=== PATIENT | male | born 1955 | race Caucasian/White ===

== ENCOUNTER 2025-04-07 11:07 | Emergency (ER) | payer MEDICARE, OTHER, SELFPAY ==
[2025-04-07 11:12] VITALS: BP 114/68
--- NOTE | 2025-04-07 11:27 | ED.GENMED ---
History of Present Illness
<Gloria Warren MD, Resident - Last Filed: 04/07/25 13:37>
General
Chief Complaint: Breathing Problem
Source: patient
Exam Limitations: none
Time Seen by Provider: 04/07/25 11:10
Nursing documentation reviewed up to this point in time: agreed with
History of Present Illness
History of Present Illness:
69yo M with a hx of COPD, tobacco use, HTN, renal insufficiency, & kidney transplant (multiple yrs prior) who presents with worsening dyspnea and hypoxia on home pulse ox.
Pt with chronic cough and dyspnea in s/o COPD, which worsened acutely in the last 1-2 days. Pt states that he is becoming breathless walking a few steps in his home. He used a home pulse ox which showed O2 sat<80%. He denies any new worsening of
cough. Endorses sick contacts in the house. Endorses continued smoking as of yesterday. Denies any f/c at home. Endorses orthopnea at baseline with slight worsening. Denies ROHIT. Was prescribed albuterol-fometerol nebulizer in August, which he has
been using daily, along with trelegy inhaler daily. He also used his albuterol rescue inhaler today. He is currently completing an azithromycin and medrol dose pack.
Past History
<Gloria Warren MD, Resident - Last Filed: 04/07/25 13:37>
Past History
ED Past Medical History: HTN and IDDM
ED Past Surgical History: Other (kidney transplant. hernia.trach)
Social History
Tobacco: Smoker
Employment: Not employed
Family History
Family History: CAD
Review of Systems
<Gloria Warren MD, Resident - Last Filed: 04/07/25 13:37>
Review of Systems
Allergies reviewed?: Yes
All Other Systems: ROS reviewed and negative except as documented in HPI and ROS
Constitutional: Reports no symptoms
EENT: Reports no symptoms
Respiratory: Reports cough and trouble breathing
Cardiac: Reports no symptoms
ABD/GI: Reports no symptoms
: Reports no symptoms
Musculoskeletal: Reports no symptoms
Skin: Reports no symptoms
Neurological: Reports no symptoms
Psychiatric: Reports no symptoms
Phy Exam
<Gloria Warren MD, Resident - Last Filed: 04/07/25 13:37>
General Physical Exam
General Presentation: mild distress
General age: appears older than age
General Skin: warm and dry
General Habitus: other (chronically ill appearing )
General Mental: alert
Cardiovascular Exam
Cardiovascular Exam: regular rate/rhythm and no edema
Heart Sounds: normal
Pulmonary Exam
Pulmonary Exam: generalized wheezing and other (no retractions or accessory muscle use )
Gastrointestinal Exam
Gastrointestinal Exam: non tender and non distended
Neurological Exam
Neurological Exam: alert and slurred speech
Musculoskeletal Exam
Musculoskeletal Exam: no edema
Psychiatric Exam
Psychiatric Exam: normal mood/affect
Scores
<Gloria Warren MD, Resident - Last Filed: 04/07/25 13:37>
Heart Failure Risk
Heart Failure Risk Score: Not Applicable
Sepsis
<Gloria Warren MD, Resident - Last Filed: 04/07/25 13:37>
Sepsis Screening
Sepsis Assessment: Sepsis Ruled Out
Sepsis Screen
Sepsis Screen: Sepsis Ruled Out
Date: 04/07/25
Time: 13:37
<Tone Alba, DO - Last Filed: 04/07/25 14:36>
Sepsis Screen
Sepsis Screen: Sepsis Ruled Out
Date: 04/07/25
Time: 14:36
Course
<Gloria Warren MD, Resident - Last Filed: 04/07/25 13:37>
Orders/Labs/Results
Orders:
Orders
04/07/25 11:10
Electrocardiogram (*1) Urgent
Reason for Study: Other
Other Reason for Exam: Respiratory Distress
Cardiac Monitoring- Treatment ONCE
EKG- Treatment ONCE
IV Insert/Care/Rem.- Treatment PRN
CR Chest - 2 Views Urgent
Comment:
Reason For Exam: respiratory distress
O2 Therapy [RESP] Urgent
Titrate/Wean O2 to maintain O2 sat greater than (%): 93
Special Instructions: TO MAINTAIN CONTINUOUS O2 SATS >/= 93%
Pulse Ox/cont/shift [RESP] Urgent
Quantity: 1
Special Instructions: continuous pulse ox
04/07/25 11:15
COVID-19 Antigen Urgent
Source: Nasal Swab
Complete Blood Count/With Diff Urgent
Comprehensive Metabolic Panel Urgent
NT-proBNP Urgent
Influenza A+B Rapid Molecular Urgent
SHANNAN Source: Nasal Swab
Specimen Description:
04/07/25 11:37
Dexamethasone Sod Phosphate [Decadron] 10 mg IV NOW STA
Ipratropium/Albuterol Sulfate [Duoneb] 3 ml INH R Q4HPRN PRN
Abnormal Lab Results
04/07/25
11:15
MCH 26.1 L pg
(27.0-31.0)
MCHC 32.2 L g/dL
(33.0-37.0)
RDW 15.1 H %
(11.5-14.5)
Absolute Neuts (auto) 7.7 H 10^3/uL
(1.4-6.5)
Absolute Lymphs (auto) 0.5 L 10^3/uL
(1.2-3.4)
Neutrophils % 89.8 H %
(42.2-75.2)
Lymphocytes % 6.3 L %
(20.5-51.1)
Potassium 5.3 H mmol/L
(3.5-5.1)
BUN 36 H mg/dl
(9-20)
Glucose 273 H mg/dl
(70-99)
Calcium 10.3 H mg/dl
(8.4-10.2)
04/07/25 11:15
04/07/25 11:15
Vital Signs
Initial and Last Documented VS:
Initial Vital Signs
Temp Pulse Resp BP Pulse Ox
98.7 F 105 17 114/68 94
04/07/25 11:12 04/07/25 11:12 04/07/25 11:12 04/07/25 11:12 04/07/25 11:12
Last Documented Vital Signs
Temp Pulse Resp BP Pulse Ox
98.7 F 89 19 117/69 97
04/07/25 11:12 04/07/25 13:30 04/07/25 13:30 04/07/25 13:00 04/07/25 13:30
<Tone H. Anjali, DO - Last Filed: 04/07/25 14:36>
Orders/Labs/Results
Orders:
Orders
04/07/25 11:10
Electrocardiogram (*1) Urgent
Reason for Study: Other
Other Reason for Exam: Respiratory Distress
Cardiac Monitoring- Treatment ONCE
EKG- Treatment ONCE
IV Insert/Care/Rem.- Treatment PRN
CR Chest - 2 Views Urgent
Comment:
Reason For Exam: respiratory distress
O2 Therapy [RESP] Urgent
Titrate/Wean O2 to maintain O2 sat greater than (%): 93
Special Instructions: TO MAINTAIN CONTINUOUS O2 SATS >/= 93%
Pulse Ox/cont/shift [RESP] Urgent
Quantity: 1
Special Instructions: continuous pulse ox
04/07/25 11:15
COVID-19 Antigen Urgent
Source: Nasal Swab
Complete Blood Count/With Diff Urgent
Comprehensive Metabolic Panel Urgent
NT-proBNP Urgent
Influenza A+B Rapid Molecular Urgent
SHANNAN Source: Nasal Swab
Specimen Description:
04/07/25 11:37
Dexamethasone Sod Phosphate [Decadron] 10 mg IV NOW STA
Ipratropium/Albuterol Sulfate [Duoneb] 3 ml INH R Q4HPRN PRN
Abnormal Lab Results
04/07/25
11:15
MCH 26.1 L pg
(27.0-31.0)
MCHC 32.2 L g/dL
(33.0-37.0)
RDW 15.1 H %
(11.5-14.5)
Absolute Neuts (auto) 7.7 H 10^3/uL
(1.4-6.5)
Absolute Lymphs (auto) 0.5 L 10^3/uL
(1.2-3.4)
Neutrophils % 89.8 H %
(42.2-75.2)
Lymphocytes % 6.3 L %
(20.5-51.1)
Potassium 5.3 H mmol/L
(3.5-5.1)
BUN 36 H mg/dl
(9-20)
Glucose 273 H mg/dl
(70-99)
Calcium 10.3 H mg/dl
(8.4-10.2)
04/07/25 11:15
04/07/25 11:15
Vital Signs
Initial and Last Documented VS:
Initial Vital Signs
Temp Pulse Resp BP Pulse Ox
98.7 F 105 17 114/68 94
04/07/25 11:12 04/07/25 11:12 04/07/25 11:12 04/07/25 11:12 04/07/25 11:12
Last Documented Vital Signs
Temp Pulse Resp BP Pulse Ox
98.7 F 89 19 117/69 97
04/07/25 11:12 04/07/25 13:30 04/07/25 13:30 04/07/25 13:00 04/07/25 13:30
<Gloria Warren MD, Resident - Last Filed: 04/07/25 13:37>
MDM/Problems Addressed
Differential Diagnosis Includes:
Presentation c/w acute on chronic hypoxic respiratory failure in the s/o COPD exacerbation, likely triggered by URI exposure vs. ongoing smoking
MDM/Problems Addressed:
- CXR
- CBC, CMP
- Monitor O2 sat
- Check COVID & flu
- 10mg IV dexamethasone
- Start duonebs
- EKG
<Gloria Warren MD, Resident - Last Filed: 04/07/25 13:37>
*Pulse Oximetry
Patient hypoxic: no
*Critical Care Note
Total Time (30-74mins, 75-104mins- exclusive of procedures): Not Applicable
<Gloria Warren MD, Resident - Last Filed: 04/07/25 13:37>
Update Note
Update Note:
11:30am
Satting 93% on RA
12:15pm
COVID & flu negative
1:15pm
Ambulation test with desat to 93% from ~95% O2 sat
Patient endorses feeling clearer breathing and improved since presentation
Auscultation of lungs with minimal wheezing, improved from presentation
ED Attending Note
<Gloria Warren MD, Resident - Last Filed: 04/07/25 13:37>
-
Portions of this chart may have been created with voice recognition software.� Occasional wrong word or��sound alike� substitutions may have occurred due to the inherent limitations of voice recognition software.
<Tone Alba, DO - Last Filed: 04/07/25 14:36>
ED Attending Note
Patient seen and examined by attending physician: Yes
I performed a history and physical exam of patient and discussed management with resident, I reviewed resident's note and agree with documented findings and plan of care.: Yes
ED Attending Note:
I agree with Gloria's note.
Patient presents with shortness of breath. Patient has history of COPD. Shortness of breath and cough have been worse over the past couple days. He does have some sick contacts. No fever. Dyspnea is worse with exertion.
General: Awake, Alert, Oriented X3. No acute distress. Appears stated age. No respiratory distress
Vitals: unremarkable
Head: Atraumatic
Eyes: Pupils equal, EOMI
Throat: Airway intact, no exudates
Neck: Trachea midline
Lungs: Straight wheezing bilateral
Heart: Regular rate, no murmurs
Abd: Soft, Nontender, No pulsatile mass
Neuro: Nonfocal
Skin: Warm, dry, no rash
Extremities: pulses equal b/l, no edema
Patient presents with increased shortness of breath. Will obtain chest x-ray, labs. Will provide DuoNebs and bolus of steroids for bronchospasm.
Patient had significant improvement with DuoNebs. Will give him a taper of prednisone. Follow-up with his primary care provider.
Discharge Plan
Departure
Patient Disposition: Home (Routine Discharge)
Date of Disposition: 04/07/25
Time of Disposition: 13:33
Patient with high blood pressure during this ER visit?: No
Condition: Fair
Covid-19: Negative COVID-19
Discharge Problem:
Acute exacerbation of chronic obstructive pulmonary disease (COPD)
Prescriptions:
New
prednisone 20 mg tablet
40 mg PO DAILY 5 Days Qty: 10 0RF
No Action
azithromycin 250 mg Tablet
0 mg PO .COMPLEX
Patient Comments:
02/25/22: Per pt, started Z-jameel and medrol dose pack on 02/22/22
Rx Instructions:
For 250 mg dose pack: take 500 mg today (day 1), then 250 mg for 4 days (days 2-5)
pravastatin 40 mg Tablet
40 mg PO HS
mycophenolate mofetil [CellCept] 250 mg Capsule
750 mg PO DAILY
mycophenolate mofetil [CellCept] 250 mg Capsule
750 mg PO DAILY@12
prednisone 1 mg Tablet
5 mg PO DAILY
sodium bicarbonate 650 mg Tablet
650 mg PO TID
omeprazole 20 mg Capsule,Delayed Release(Dr/Ec)
20 mg PO BID
lisinopril 5 mg Tablet
5 mg PO DAILY
methylprednisolone [Medrol (Jameel)] 4 mg Tablets,Dose Pack
0 mg PO PER PKG DIR
Patient Comments:
02/25/22: Per pt, started Zpak and medrol dose pack on 02/22/22
Rx Instructions:
Day 1: 24 mg on day 1 administered as 8 mg (2 tablets) before breakfast, 4 mg (1 tablet) after lunch, 4 mg (1 tablet) after supper, and 8 mg (2 tablets) at bedtime or 24 mg (6 tablets) as a single dose or divided into 2 or 3 doses upon initiation
(regardless of time of day).
Day 2: 20 mg on day 2 administered as 4 mg (1 tablet) before breakfast, 4 mg (1 tablet) after lunch, 4 mg (1 tablet) after supper, and 8 mg (2 tablets) at bedtime.
Day 3: 16 mg on day 3 administered as 4 mg (1 tablet) before breakfast, 4 mg (1 tablet) after lunch, 4 mg (1 tablet) after supper, and 4 mg (1 tablet) at bedtime.
Day 4: 12 mg on day 4 administered as 4 mg (1 tablet) before breakfast, 4 mg (1 tablet) after lunch, and 4 mg (1 tablet) at bedtime.
Day 5: 8 mg on day 5 administered as 4 mg (1 tablet) before breakfast and 4 mg (1 tablet) at bedtime.
Day 6: 4 mg on day 6 administered as 4 mg (1 tablet) before breakfast.
albuterol sulfate [Ventolin HFA] 90 mcg/actuation Hfa Aerosol Inhaler
2 puff INHALATION R QIDPRN PRN (Reason: shortness of breath)
tacrolimus [Prograf] 1 mg Capsule
2 mg PO DAILY
tacrolimus [Prograf] 1 mg Capsule
3 mg PO DAILY@12
docusate sodium 100 mg Tablet
100 mg PO BID
insulin aspart U-100 [Novolog FlexPen U-100 Insulin] 100 unit/mL (3 mL) Insulin Pen
17 unit SC DAILY@0730
insulin aspart U-100 [Novolog FlexPen U-100 Insulin] 100 unit/mL (3 mL) Insulin Pen
12 unit SC DAILY@1130
insulin aspart U-100 [Novolog FlexPen U-100 Insulin] 100 unit/mL (3 mL) Insulin Pen
10 unit SC DAILY@1630
insulin glargine [Lantus Solostar U-100 Insulin] 100 unit/mL (3 mL) Insulin Pen
50 unit SC HS
cholecalciferol (vitamin D3) 125 mcg (5,000 unit) Tablet
5,000 unit PO DAILY
icosapent ethyl [Vascepa] 1 gram Capsule
2 g PO BID
Anoro Ellipta 62.5-25 mcg/actuation Blister With Device
1 inh INHALATION R DAILY
magnesium oxide 400 mg magnesium Tablet
400 mg PO DAILY
Trulicity 3 mg/0.5 mL Pen Injector
3 mg SC WE
albuterol sulfate [ProAir HFA] 90 mcg/actuation HFA aerosol inhaler
1 puff inhalation Q4HPRN PRN (Reason: shortness of breath) Qty: 6.7 1RF
prednisone 10 mg tablet
10 mg PO DAILY Qty: 20 0RF
Rx Instructions:
4 tablets tomorrow then 1 less tablet every other day until gone
albuterol sulfate 90 mcg/actuation aerosol powdr breath activated
2 inh inhalation Q6H PRN (Reason: shortness of breath) Qty: 1 0RF
Referrals:
UNKNOWN - PT DOES,NOT KNOW [Unknown Provider]
Activity Restrictions/Additional Instructions:
You were seen in the ED today for an exacerbation of your COPD. You were negative for COVID and flu. You were given courses of nebulized albuterol-ipratropium, as well as 10mg dexamethasone (steroid). We are discharging you with a prescription for a
steroid course (prednisone).
Take 40mg predisone a day for 5 days, starting tomorrow (instead of the medrol pack). You may follow up with your respiratory care technician outpatient.
Please return if you have worsening shortness of breath/trouble breathing or chest pain.
Interventions
Interventions:
*Risk Screen - Suicide Last Done: 04/07/25 11:12
*General Assessment Last Done: 04/07/25 11:12
*Neglect/Abuse Screening Last Done: 04/07/25 11:12
*ED- Fall Risk Assessment Last Done: 04/07/25 11:43
*ED COVID-19 Vaccine History Last Done: 04/07/25 11:43
*ED Influenza Vaccine History Last Done: 04/07/25 11:43
*Nursing Disposition Last Done: 04/07/25 14:13
ED- Cardiac Assessment Last Done: 04/07/25 11:12
ED- Pulmonary Assessment Last Done: 04/07/25 11:12
Discharge Date and Time
Discharge Date/Time: 04/07/25 14:13
Print Language: NEPALI
[2025-04-07] MEDS: DECADRON 10 MG IV (11:47)
[2025-04-07] MEDS: DUONEB 3 ML INH (11:47)
[2025-04-07 11:56] LABS: Hematocrit 43.2 % (39.0-52.0); Hemoglobin 13.9 g/dL (13.0-18.0); Mean Corp Hgb Conc. 32.2 g/dL (33.0-37.0); Mean Corpuscular Volume 81.1 fL (80.0-94.0); Nucleated Red Blood Cells % 0 % (-); Platelet Count 231 10^3/uL (130-400); Red Cell Dist. Width 15.1 % (11.5-14.5)
[2025-04-07 12:00] VITALS: BP 132/76
[2025-04-07 12:03] LABS: COVID-19 Antigen Negative (Negative)
[2025-04-07 12:07] LABS: ALT (SGPT) 15 U/L (0-50); AST (SGOT) 17 U/L (17-59); Albumin 4.8 g/dl (3.5-5.0); Alkaline Phosphatase 101 U/L (38-126); Blood Urea Nitrogen 36 mg/dl (9-20); Calcium 10.3 mg/dl (8.4-10.2); Carbon Dioxide 26 mmol/L (22-30); Chloride 103 mmol/L (98-107); Estimated Creatinine Clearance 57 ml/min; Glucose 273 mg/dl (70-99); Potassium 5.3 mmol/L (3.5-5.1); Sodium 139 mmol/L (135-145); Total Protein 8.1 g/dl (6.3-8.2); eGFR 59.47
[2025-04-07 12:36] VITALS: BP 111/75
[2025-04-07 13:00] VITALS: BP 117/69
== END 2025-04-07 14:13 | disposition home or self-care (01) ==
LOC: EMR 11:07
PROVIDERS: EMERGENCY PHYSICIAN Emergency Medicine; FAMILY PHYSICIAN Family Medicine
DX: J44.1 Chronic obstructive pulmonary disease with (acute) exacerbation (principal); I10 Essential (primary) hypertension; E11.9 Type 2 diabetes mellitus without complications; F17.200 Nicotine dependence, unspecified, uncomplicated; Z94.0 Kidney transplant status; Z79.4 Long term (current) use of insulin; Z11.52 Encounter for screening for COVID-19
CPT/HCPCS: 96374; 94640; 99285; 71046; 80053; 83880; 85025; 87502; 87811; 93005